=== PATIENT | male | born 2000 | race Caucasian/White ===

== ENCOUNTER 2021-03-05 14:40 | Emergency (ER) | payer MEDICAID, SELFPAY ==
[2021-03-05 14:41] VITALS: BP 123/91; PULSE 100; RESP 18; TEMP 36.7; O2SAT 98; BMI 25.0
[2021-03-05 15:04] VITALS: BP 123/77; PULSE 94; RESP 18; TEMP 36.6; O2SAT 98
--- NOTE | 2021-03-05 16:23 | EDS_ITS ---
HPI History of Present Illness Chief Complaint: Substance Abuse Informant: patient and parent Narrative Narrative: Patient presents with concern for alcohol withdrawal. She used to use cocaine and meth but has not used that in over 2 months. She never injected. She does state that she drinks but not every day. She will have between 5 and 8 total drinks in a day but then will not drink the next day oftentimes. She does state that she gets withdrawal symptoms. She just does not feel well. She feels little shaky. Her last drink was a little over 48 hours ago. That would be early Friday morning. Later Friday she felt a little shaky but now the symptoms are gone and she has not drank. She has already made connections with [facility]. They referred her to come in here. She has never been through a detox program before. No physical complaints at this time. Past medical history is positive for occasional asthma but no regular treatment. No routine medications at this time Denies allergies Does occasionally smoke, alcohol and drugs as above. [facility] Medical History Asthma Social History Smoking Status: Current every day smoker tobacco type: cigarettes ROS ROS ED Constitutional Constitutional ED: Denies fever(s) or subjective Eyes Eyes: Denies blurry vision ENT ENT ED: Denies rhinorrhea Cardiovascular Cardiovascular: Denies chest pain or palpitations Respiratory/Chest Respiratory/Chest: Denies cough or dyspnea Gastrointestinal Gastrointestinal: Denies abdominal pain, nausea or vomiting Genitourinary Genitourinary ED: Denies dysuria Musculoskeletal Musculoskeletal: Denies myalgias Integumentary Denies rash Neurologic Neurologic: Denies headache(s) or paresthesias Psychiatric Psychiatric: Denies suicidal thoughts Hematologic/Lymphatic Hematologic/Lymphatic: Denies easy bruising Allergic/Immunologic Allergic/Immunologic ED: Denies urticaria EXAM Physical Exam Const Vital Signs: 03/05/21 14:41 03/05/21 15:04 Temperature 98.1 F 98 F Temperature Source Temporal Temporal Pulse Rate 100 94 Respiratory Rate 18 18 Blood Pressure 123/91 H 123/77 H Blood Pressure Mean 101 92 Blood Pressure Source Monitor Blood Pressure Position Semi-Fowlers Blood Pressure Location Right Arm Pulse Ox 98 98 Oxygen Delivery Method Room Air Room Air Positive well nourished and well developed General Appearance ED: well developed and NAD HEENT Reports moist mucous membranes atraumatic; Negative for tenderness Eyes General Eye ED: Negative for pale conjunctiva or scleral icterus Neck supple Resp normal respiratory effort and clear to auscultation bilaterally Cardio regular rate, regular rhythm and no murmurs GI soft to palpation, non-tender, non-distended and no masses Back/Spine no CVA tenderness Neuro oriented x3 Neuro Narrative: Patient is awake alert and calm. No piloerection. No flight of ideas. No sign of hallucinations. Sensorium / Orientation: alert Psych mental status grossly normal Skin Skin Narrative: No diaphoresis or piloerection. Lesions: no lesions Rashes: no rashes MDM MDM MDM Narrative Medical decision making narrative: We made some contacts and so did the patient. The promotions representative [id number] is not coming here today. However they are going to talk to her tomorrow. Patient does not think she needs to come in the hospital for detox. I agree with her. She is having no withdrawal symptoms at this time and she is over 2 days from her last drink. She had some transient symptoms afterwards but those resolved on their own. We did discuss following up if she develops further symptoms. All questions were answered. Discharge Plan Triage Chief Complaint: Substance Abuse ED Provider: Juvencio Mathias Dx/Rx/DC Orders Clinical Impression: History of alcohol abuse Instructions: ED Alcohol Abuse Referrals: ALAN RIOJAS [Other] - 3-5 Days Disposition Disposition: Home, Self Care
== END 2021-03-05 17:22 | disposition home or self-care (01) ==
PROVIDERS: Emergency Provider Emergency Medicine
DX: F10.10 Alcohol abuse, uncomplicated (principal); Y90.9 Presence of alcohol in blood, level not specified; F17.210 Nicotine dependence, cigarettes, uncomplicated
CPT/HCPCS: 99282

== ENCOUNTER 2021-03-18 22:58 | Emergency (ER) | payer MEDICAID, SELFPAY ==
[2021-03-18 23:02] VITALS: BP 128/69; PULSE 104; RESP 18; TEMP 36.6; O2SAT 100; BMI 26.4
[2021-03-18 23:07] VITALS: O2SAT 100
--- NOTE | 2021-03-18 23:27 | ED.VIS.DYS ---
HPI History of Present Illness Chief Complaint: Asthma Informant: patient Narrative Narrative: 20-year-old female originally from [place] states that she is in a rehab house. States that earlier tonight she felt very short of breath and wheezing. She used her albuterol inhaler but it did not seem to be working so she came to emergency. She is a long-term smoker. She states she was diagnosed with asthma as a child and has an inhaler because she told the emergency department at 1 point she did have 1. She states that she has never had pulmonary function testing. She supposed to see her primary care doctor tomorrow. She reports a chronic cough for 3+ years. [facility] Medical History Anxiety Asthma Depression Gender dysphoria PTSD (post-traumatic stress disorder) Allergy/AdvReac Type Severity Reaction Status Date / Time No Known Allergies Allergy Verified 03/18/21 23:06 Social History (Updated 03/18/21 @ 23:[address] Abdi Perez DO) Smoking Status: Current every day smoker tobacco type: cigarettes substance use type: does not use ROS ROS ED Constitutional Constitutional ED: Denies chills or weight loss Eyes Eyes: Denies change in vision or diplopia ENT ENT ED: Denies ear pain, rhinorrhea or sore throat Cardiovascular Cardiovascular: Denies chest pain, orthopnea, palpitations or racing heartbeat Respiratory/Chest Respiratory/Chest: Reports cough and dyspnea; Denies orthopnea Gastrointestinal Gastrointestinal: Denies abdominal pain, diarrhea, nausea or vomiting Genitourinary Genitourinary ED: Denies dysuria, hematuria or urinary frequency Musculoskeletal Musculoskeletal: Denies arthralgias or myalgias Integumentary Denies abscess or rash Neurologic Neurologic: Denies headache(s) or weakness Psychiatric Psychiatric: Denies anxiety, depression, suicidal ideation or suicidal thoughts Endocrine Endocrinology: Denies polydipsia, polyphagia or polyuria Allergic/Immunologic Allergic/Immunologic ED: Denies mouth swelling, tongue swelling or urticaria EXAM Physical Exam Const Vital Signs: 03/18/21 23:02 03/18/21 23:07 Temperature 97.8 F Temperature Source Temporal Pulse Rate 104 Respiratory Rate 18 Respiratory Effort Normal Non-Labored Respiratory Depth Normal Respiratory Pattern Normal Blood Pressure 128/69 Blood Pressure Mean 88 Pulse Ox 100 Oxygen Delivery Method Room Air Room Air Positive well nourished and well developed General Appearance ED: well developed HEENT Reports normocephalic, head/scalp atraumatic and moist mucous membranes Eyes PERRL and EOMs intact bilaterally Neck no lymphadenopathy, supple and no JVD Resp normal respiratory effort and clear to auscultation bilaterally Cardio regular rate, regular rhythm and no murmurs GI normal to inspection, nondistended, normoactive bowel sounds and non-tender Palpation: soft Back/Spine no CVA tenderness and normal ROM Extremity normal to inspection General Extremety ED: Negative for edema General Extremity: Negative for edema Neuro oriented x3 and CN's II-XII intact bilaterally Sensorium / Orientation: alert Motor Exam: strength 5/5 throughout Psych mental status grossly normal Mood & Affect: Negative for depressed or tearful Skin no rashes or lesions noted and no wounds MDM MDM MDM Narrative Medical decision making narrative: Patient's lung sounds are clear. Her vital signs are stable. I think the patient can be discharged home. I advised her that she may want to speak with her doctor tomorrow regarding pulmonary function test and if she has having to use her inhaler daily then she may need more of a maintenance medicine Discharge Plan Triage Chief Complaint: Asthma ED Provider: Abdi Perez Dx/Rx/DC Orders Clinical Impression: Acute dyspnea Instructions: Asthma Primary Care Provider: Care Physician,No Primary Referrals: Care Physician,No Primary [Primary Care Provider] - Activity Restrictions/Additional Instructions: Please discuss with your doctor tomorrow pulmonary function test and daily maintenance medications for your asthma if that is what you have. Strongly consider stop smoking Disposition Disposition: Home, Self Care
== END 2021-03-18 23:50 | disposition home or self-care (01) ==
LOC: ED 23:41
PROVIDERS: Emergency Provider Emergency Medicine
DX: R06.02 Shortness of breath (principal); F17.210 Nicotine dependence, cigarettes, uncomplicated
CPT/HCPCS: 99284